=== PATIENT | male | born 1950 | race Caucasian/White ===

== ENCOUNTER → 2023-02-04 14:29 | Outpatient (BNVA) | payer MEDICARE, SELFPAY | PROVIDERS: PCP Family Medicine; Referring Provider Family Medicine; Visit Provider Physical Therapy Assistant | DX: Z12.11 Encounter for screening for malignant neoplasm of colon (principal); Z86.010 Personal history of colon polyps; Z80.0 Family history of malignant neoplasm of digestive organs ==

== ENCOUNTER 2023-02-08 10:42 | Day surgery (SDC) | payer MEDICARE, SELFPAY ==
--- NOTE | 2023-02-07 20:29 | W.PM.DSUDISC ---
Date of service: 02/08/23 Time of Service: 13:15 Discharge Plan Disposition Patient Disposition: Home Condition: Good Discharge Details Reason For Visit: Screening colonoscopy Attending Provider: Davi Gruber Primary Care Provider: Jacqueline Arriaga Home Meds and New Rx's Prescriptions: Continued pravastatin 20 MG tablet 20 mg PO DAILY cholecalciferol (vitamin D3) 1,000 UNIT capsule 1,000 unit PO DAILY sertraline 25 MG tablet 1.5 mg PO DAILY lisinopril-hydrochlorothiazide 10-12.5 mg tablet 1 tab PO DAILY multivitamin Tablet 1 tab PO DAILY Discontinued bisacodyl [Dulcolax (bisacodyl)] 5 mg tablet,delayed release (DR/EC) 5 mg PO ONCE Qty: 4 0RF Rx Instructions: Take per colonoscopy instructions provided by ordering providers office polyethylene glycol 3350 17 gram/dose powder 17 g PO ONCE Qty: 238 0RF Rx Instructions: Take per colonoscopy instructions provided by ordering providers office Discharge Instructions Instructions: Colorectal Polyps (GEN) Additional Instructions: M, we were able to complete your colonoscopy today without any difficulty. I found 3 polyps in total. I removed them all completely. Once I have the results on what types of polyps they are, I will be in touch with recommendations on your next colonoscopy. 1. If tolerated, consume a soft, low fiber diet for 1-2 days. 2. Do not drive, drink alcohol, operate machinery, make critical decisions, or do activities that require coordination or balance for 24 hours. 3. Because air was put into your colon during the procedure, expelling air from your rectum (passing gas or farting) is normal. 4. You may not have a bowel movement for 1-3 days because of the colonoscopy prep. This is normal. 5. Go directly to the emergency room if you notice any of the following: Develop chills (warm to touch), or if you have a thermometer and your temperature is above 101 Difficulty breathing or difficultly swallowing Persistent vomiting Severe abdominal pain, other than gas cramps Severe chest pain Black, tarry stools Any bleeding ? exceeding one tablespoon 6. Call your physician if the site where your intravenous was started becomes red, swollen, painful, and warm to touch. 7. Your physician has reviewed your pre-procedure medications. Please continue to take those medications as previously ordered. You will be given specific information/education regarding any changes to your medications before leaving. Activity:: Activity as Tolerated Diet:: As Tolerated Discharge Orders Discharge Orders: Discharge Order (Routine); Ordered 02/07/23 Ordered By: Davi Gruber DS: Diagnosis Discharge Diagnosis (1) Colon cancer screening: Status: Acute Asessment and Plan: Follow-up on the polypectomy results
--- NOTE | 2023-02-07 20:30 | W.COLOREPORT ---
Date of service: 02/08/23 Time of Service: 13:19 Colonoscopy Report Date of procedure: 02/08/23 Pre-op diagnosis general: Screening colonoscopy Post-op diagnosis procedure note: other (Colon and rectal polyps) Procedure: Colonoscopy with polypectomy Surgeon: Davi Gruber Anesthesia Type: General:No Airway Estimated blood loss (mL): 10 Pathology: other (Cecal polyp, polyp at 100 cm, rectal polyp) Complications: None Disposition: same day Indications: Trace is a 72 year old man following up for his next screening colonoscopy Prep: Miralax/Dulcolax Procedure Start Time: 12:37 Procedure End Time: 13:03 Retraction Time: 16 Findings: Cecal polyp, polyp at 100 cm, rectal polyp Procedure Description: After the induction of monitored anesthetic care, and with the patient in left lateral decubitus position, I began by performing an external anorectal exam.? Perineum and skin were normal, as was the anal verge.? There was no evidence of external hemorrhoids.? Next, I performed a digital rectal exam.? I did not appreciate any abnormal findings.? Next, I advanced a colonoscope into the rectal vault.? I performed retroflexion.? This appeared normal.? Using insufflation, I then advanced the colonoscope beyond the rectal folds and into the sigmoid colon before advancing towards the cecum.? The quality of the prep was excellent.? The scope was noted to be in the cecum by identification of the ileocecal valve and appendiceal orifice.? There was a 0.25 cm sessile polyp in the cecum. I removed this with cold forcep polypectomy. There was minimal bleeding. I then began withdrawing the colonoscope using repeated irrigation as necessary for full evaluation of the colonic mucosa. Around 100 cm from the anal verge I identified a 0.25 cm polyp. ?It appeared sessile in character. ?I was able to remove this with a cold forcep polypectomy. ?I examined the site, and there was minimal bleeding. ?Once this was completed, I continued to withdraw the scope and examine the remainder of the colonic mucosa. ?Once the scope was withdrawn to the level of the rectum, great care was taken to examine portions of the rectal folds.? In the upper portion of the rectum was another 0.5 cm sessile polyp. I attempted to remove this with cold forcep polypectomy, but on further examination, it was a bit more pedunculated, and I felt that snare polypectomy would be the better treatment option. Therefore, using a small energized snare, I removed this polyp and retrieved it with suction. There was no bleeding from the site. Finally, the scope was withdrawn and the patient was brought to the same-day surgery recovery unit as the anesthetic wore off. ?The findings and instructions were shared with the patient prior to discharge.
[2023-02-08 11:24] VITALS: BP 124/79; PULSE 50; RESP 16; TEMP 36; O2SAT 98
[2023-02-08] MEDS: Lactated Ringers 1,000 ML 80 ML IV (11:39)
--- NOTE | 2023-02-08 12:22 | W.ANESPRE ---
General Info Date of Service Date Performed: 02/08/23 Height: 6 ft Weight: 98.3 kg Body Mass Index (BMI): 29.4 Surgical Procedure: Operation Date: 02/08/23 12:05 Proposed Procedure Side Surgeon p Allegra Gruber MD Meds Allergies and Home Medications Allergies Allergy/AdvReac Type Severity Reaction Status Date / Time Penicillins Allergy DIARRHEA Unverified 02/08/23 11:10 Home Medication Medication Instructions Recorded cholecalciferol (vitamin D3) 25 1,000 unit PO DAILY 05/03/13 mcg (1,000 unit) capsule pravastatin 20 mg tablet 20 mg PO DAILY 05/03/13 sertraline 25 mg tablet 1.5 mg PO DAILY 06/22/17 lisinopril 10 1 tab PO DAILY 02/25/22 mg-hydrochlorothiazide 12.5 mg tablet multivitamin 1 tab PO DAILY 02/25/22 Current Visit Medications: Current Medications Generic Name Dose Route Start Last Admin Trade Name Freq PRN Reason Stop Dose Admin Hyoscyamine Sulfate 0.125 mg 02/07/23 20:32 Hyoscyamine 0.125 Mg Sl/Oral/Chew SL 03/09/23 20:31 DIRECTED PRN Ringer's Solution 1,000 mls @ 80 mls/hr 02/08/23 06:00 02/08/23 11:39 IV 03/07/23 23:59 80 mls/hr INFUSION SHAILESH Administration IV Miscellaneous Supplies 1 each 02/08/23 06:00 Iv Access IV 03/07/23 23:59 DIRECTED SHAILESH Ondansetron HCl 4 mg 02/07/23 20:32 Ondansetron 4 Mg/2 Ml Vial IVP 03/09/23 20:31 Q4H PRN PRN Nausea / Vomiting Sodium Chloride 0 ml 02/08/23 06:00 Normal Saline Flush 10 Ml Syr IV 03/07/23 23:59 PRN PRN Sodium Chloride 0 ml 02/08/23 06:00 Normal Saline 10 Ml Vial IJ 03/07/23 23:59 DIRECTED PRN Sterile Water 0 ml 02/08/23 06:00 Water,Injection,Sterile 10 Ml Vial IJ 03/07/23 23:59 DIRECTED PRN PFSH Active Problems Active Problems: Problem Status Onset Code Colon cancer screening Z12.11 Medical History Medical History Diabetes mellitus, type 2 Essential hypertension Heart murmur CHILDHOOD Palpitations Rosacea Tubular adenoma (~2012) Surgical History Surgical History Colonoscopy - MAC (07/05/17) great toe right Tonsillectomy and adenoidectomy Tobacco Smoking/Tobacco Use Status: Former Tobacco Use Alcohol Alcohol Intake: never Substance Use Substance use: Never Vital Signs and Lab Results Vital Signs Most Recent Vital Signs in EMR: Most Recent Vital Signs Temp Pulse Resp BP Pulse Ox 36 C L 50 L 16 124/79 98 02/08/23 11:24 02/08/23 11:24 02/08/23 11:24 02/08/23 11:24 02/08/23 11:24 Lab Results Blood Type / Crossmatch: No Data to Display Complete Blood Count: No Data to Display Complete Metabolic Panel: No Data to Display Liver Function Panel: No Data to Display Coagulation Panel: No Data to Display Cardiac Panel: No Data to Display Arterial Blood Gas: No Data to Display Venous Blood Gas: No Data to Display Pancreas Panel: No Data to Display Thyroid Panel: No Data to Display Infectious Disease: No Data to Display Blood Cultures: No Data to Display Toxicology Panel: No Data to Display Anesthesia Assessment and Plan Anesthesia History Personal History: No History of Anesthesia Complications Family History: No Family History of Anesthesia Complications Exercise Tolerance Exercise Tolerance: Metabolic Equivalents>4 Pertinent Negatives Pertinent Negatives: No Symptoms of GERD, No Major Cardiovascular Symptoms or Complaints, No Major Pulmonary Symptoms or Complaints and No History of CVA/TIA Cardiac & Pulmonary Exam Cardiac Exam: Normal S1/S2 Heart Sounds Pulmonary Exam: Clear Bilateral Breath Sounds Implantable Cardiac Device Does patient have a Pacemaker or an ICD?: No Airway Exam Known Difficult Airway: No Mallampati Class: 3 Mouth Opening: Normal (> 3cm) Thyromental Distance: Greater than 3 cm Facial Hair: Full Ortega Neck Range of Motion: Full ROM Neck Circumference: Normal Teeth Condition: Other (edentulous top, teeth only in front on bottom, none loose. ) ASA Classification ASA Score: ASA 2 Emergency Case?: No NPO Status NPO Status: NPO Clears >2 hours, Solids >8 hours Anesthesia Plan Resuscitation Status: Full Code Anesthesia Technique: General Anesthesia Airway Planned: Natural Airway Monitors Used: Standard Monitors
[2023-02-08 12:29] VITALS: BMI 29.4
--- NOTE | 2023-02-08 13:00 | BOWEL_PTH ---
PATIENT: GUNNAR GORMAN LOC: [facility] U#:[id number] AGE/SX: 72/M ROOM: RE02/08/[address]: Davi Gruber MD : 1950 BED: DIS: 02/08/2023 SPEC #: [id number] RECD: 02/08/23 16:20 STATUS: DAWNA RE #: [id number] MARILIA: 02/08/23 13:[address]: Davi Gruber DEPT: Surgical Specimen RECD BY: Marce Dominguez ENTERED: 02/08/23 16:21 SP TYPE: Bowel OTHR DR: Jacqueline Arriaga Tissues: 1 - BIOPSY BOWEL 2 - BIOPSY BOWEL 3 - BIOPSY BOWEL Procedures: GROSS AND MICRO LEVEL 4 Comments: [id number]
[2023-02-08 13:45] VITALS: BP 120/82; PULSE 65; RESP 18; TEMP 36.6; O2SAT 98
--- NOTE | 2023-02-08 13:47 | W.ANESPOSTOP ---
Postoperative Evaluation Date, Time and Location Date Performed: 02/08/23 Time Performed: 13:47 Patient Location: Day Surgery Unit Vital Signs Most Recent Imported Vital Signs: Most Recent Vital Signs Temp Pulse Resp BP Pulse Ox 36 C L 50 L 16 124/79 98 02/08/23 11:24 02/08/23 11:24 02/08/23 11:24 02/08/23 11:24 02/08/23 11:24 Assessment Mental Status: Awake (Alert & Oriented to Patient Baseline) Airway and Respiratory Function: Patent airway with normal (patient baseline) respiratory exam Cardiovascular Function: Hemodynamically Stable Hydration Status: Adequately Hydrated Nausea & Vomiting: No Nausea or Vomiting Pain: Pt. Denies Any Pain Peripheral Nerve Block: Patient did not receive a nerve block
== END 2023-02-08 12:58 | disposition home or self-care (01) ==
PROVIDERS: PCP Nurse Practitioner Family; Visit Provider Surgery
PROC: 0DJD8ZZ Inspection of Lower Intestinal Tract, Via Natural or Artificial Opening Endoscopic (ICD-10-PCS; CPT 45378; principal; 2023-02-08 12:00)
DX: Z12.11 Encounter for screening for malignant neoplasm of colon (principal); D12.3 Benign neoplasm of transverse colon; D12.0 Benign neoplasm of cecum
CPT/HCPCS: 45380; 45385; 88305